=== PATIENT | female | born 1980 | race Caucasian/White ===

== ENCOUNTER 2017-01-02 04:04 | Emergency (ER) | payer OTHER ==
[~2017-01-02] VITALS: Ht 160 cm; Wt 62.6 kg
[~2017-01-02 04:04] MED LIST: BACTRIM DS TAB1 EACH PO; FLEXERIL10 MG PO; HEALTHYLAX17 GM PO; KEFLEX500 MG PO; MILK OF MAGNESI30 ML PO; NORCO 5-325 TA1 EACH PO; TYLENOL500 MG PO
== END 2017-01-02 07:35 | disposition short-term general hospital (02) ==
LOC: ER 04:04
DX: N12 Tubulo-interstitial nephritis, not specified as acute or chronic (principal)
CPT/HCPCS: J0696

== ENCOUNTER 2017-01-04 07:53 | Emergency (ER) | payer OTHER ==
[~2017-01-04] VITALS: Ht 160 cm; Wt 60.3 kg
== END 2017-01-04 14:05 | disposition short-term general hospital (02) ==
LOC: ER 07:53
DX: N83.201 Unspecified ovarian cyst, right side (principal); N12 Tubulo-interstitial nephritis, not specified as acute or chronic; Z90.710 Acquired absence of both cervix and uterus; Z87.891 Personal history of nicotine dependence
CPT/HCPCS: J0692; Q9963; Q9967